=== PATIENT | female | born 1995 | race Two or more races ===

== ENCOUNTER → 2022-09-10 | Emergency (ER) | payer MEDICAID ==
[~2022-09-10] VITALS: Ht 162.6 cm; Wt 86.8 kg
[~2022-09-10] MED LIST: CLINDAMYCIN 600MG IV 50 ML IV ONE
[2022-09-10 21:20] VITALS: BP 109/75
== END | disposition left against medical advice (07) ==
LOC: EDUNIT# 20:55 → EDBD 21:08 → ER 21:10
DX: N73.9 Female pelvic inflammatory disease, unspecified (principal); N70.93 Salpingitis and oophoritis, unspecified; Z53.29 Procedure and treatment not carried out because of patient's decision for other reasons
CPT/HCPCS: 74176

== ENCOUNTER 2022-10-20 22:33 | Emergency (ER) | payer MEDICAID | END 2022-10-20 23:24 | disposition left against medical advice (07) | LOC: ER 22:34 | DX: Z00.00 Encounter for general adult medical examination without abnormal findings (principal); Z53.21 Procedure and treatment not carried out due to patient leaving prior to being seen by health care provider ==

== ENCOUNTER 2022-10-22 12:03 | Emergency (ER) | payer MEDICAID ==
[~2022-10-22] VITALS: Ht 162.6 cm; Wt 86.4 kg
[2022-10-22 12:43] VITALS: BP 115/85
== END 2022-10-22 17:23 | disposition left against medical advice (07) ==
LOC: ER 12:03
DX: Z43.4 Encounter for attention to other artificial openings of digestive tract (principal); Z53.21 Procedure and treatment not carried out due to patient leaving prior to being seen by health care provider